=== PATIENT | female | born 1960 | race Caucasian/White ===

== ENCOUNTER 2021-06-08 06:52 | Day surgery (SDC) | payer BC ==
[~2021-06-08] VITALS: Ht 172.7 cm; Wt 97.5 kg
[~2021-06-08 06:52] MED LIST: DUTOPROL1 TA1 PO; EZALLOR SPRINKL10 MG; FISH OIL1 CAP; HYDROCHLOROT12.5 MG PO; LEVO-T25 MCG; LEVOTHYROXIN100 MCG PO; LEVOTHYROXIN112 MC1 PO; LEVOTHYROXIN125 MC1 PO; LEVOTHYROXIN137 MCG PO; METFORMIN HCL500 M1 PO; MULTIVITAMIN1 TA1; TRULICITY0.75 MG/0.
[2021-06-08 09:18] VITALS: BP 141/81
== END 2021-06-08 09:05 | disposition home or self-care (01) | DRG 379 ==
LOC: ENDO 06:52 → ORM 08:00 → ENDO 08:00
PROVIDERS: ATTEND Surgery
DX: K92.1 Melena (principal); K57.30 Diverticulosis of large intestine without perforation or abscess without bleeding; K64.8 Other hemorrhoids; I10 Essential (primary) hypertension; E11.8 Type 2 diabetes mellitus with unspecified complications